=== PATIENT | male | born 1995 | race Hispanic/Latino ===

== ENCOUNTER 2024-09-25 10:07 | Emergency (ER) | payer BC ==
[~2024-09-25] VITALS: Ht 190.5 cm; Wt 104.3 kg
[2024-09-25] MEDS: ondanSETRON 4MG INJ IVP STA (11:03)
[2024-09-25] MEDS: 0.9%NACL 1000ML 1,000 ML IV STA (11:03)
[2024-09-25] MEDS: FAMOTIDINE 20MG VIAL IV STA (11:03)
[2024-09-25] MEDS: ketOROlac 15MG/ML VIAL (15MG/ML) IV STA (11:04)
[2024-09-25 11:07] LABS: APPEARANCE,URINE CLEAR (CLEAR); BILIRUBIN,URINE NEGATIVE (NEGATIVE); COLOR,URINE LIGHT-YELLOW (YELLOW); GLUCOSE, URINE (UA) NEGATIVE (NEGATIVE); KETONES,URINE NEGATIVE (NEGATIVE); LEUKOCYTE ESTERASE ,URINE NEGATIVE Leu/uL (NEGATIVE); NITRATE,URINE NEGATIVE (NEGATIVE); PH,URINE 5.5 (5.0-8.0); PROTEIN,URINE NEGATIVE (NEGATIVE); UROBILINOGEN,URINE 0.2 mg/dL (0.2-1.0)
[2024-09-25 11:08] LABS: ADD UA MICROSCOPIC YES
[2024-09-25 11:09] LABS: MUCUS,URINE RARE LPF (None Seen); RBC,URINE 0-1 /HPF (0-1); WBC,URINE 0-1 /HPF (0-1)
[2024-09-25 11:15] LABS: BASOPHILS # (AUTO) 0.02 K/uL (0.00-0.20); BASOPHILS % (AUTO) 0.3 % (0.0-5.0); EOSINOPHILS # (AUTO) 0.03 K/uL (0.00-0.70); EOSINOPHILS % (AUTO) 0.5 % (0.0-8.0); HEMATOCRIT 45.5 % (42-54); IMMATURE GRANULOCYTE ABSOLUTE 0.03 K/uL (0-1); LYMPHOCYTES # (AUTO) 1.6 K/uL (1.0-4.8); LYMPHOCYTES % (AUTO) 26.6 % (21.0-51.0); MEAN CORPUSCULAR HEMOGLOBIN 29.9 pg (27.0-33.0); MEAN CORPUSCULAR HGB CONC 34.7 g/dL (32.0-36.0); MEAN CORPUSCULAR VOLUME 86.2 fL (79-99); MONOCYTES # (AUTO) 0.6 K/uL (0.1-1.0); MONOCYTES % (AUTO) 10.1 % (3.0-13.0); NEUTROPHILS # (AUTO) 3.7 K/uL (1.8-7.7); PLATELET COUNT (AUTO) 234 K/uL (130-400); RED BLOOD CELL COUNT(AUTO) 5.28 MIL/uL (4.50-6.20); RED CELL DISTRIBUTION WIDTH 12.2 % (11.0-15.5); WHITE BLOOD COUNT (AUTO) 5.9 K/uL (4.8-10.8)
[2024-09-25 11:26] LABS: CREATININE 0.7 mg/dL (0.5-1.3); POTASSIUM 3.8 mmol/L (3.5-5.1)
[2024-09-25 11:31] LABS: ALBUMIN 4.1 g/dL (3.5-5.0); BILIRUBIN,DIRECT 0.1 mg/dL (0.0-0.3); BILIRUBIN,TOTAL 0.5 mg/dL (0.2-1.0); TOTAL PROTEIN, SERUM 7.9 g/dL (6.0-8.3)
[2024-09-25] MEDS ORDERED: FAMO-136 PO (12:02)
[2024-09-25] MEDS ORDERED: ONDA-243 PO (12:02)
--- NOTE | 2024-09-25 12:03 | ERN ---
ED Note History of Present Illness Stated Complaint: EPIGASTRIC PAIN, N/V/D Chief Complaint: Abdominal Pain Time Seen by MD: 10:17 Time Seen by Midlevel: 10:20 Dictation: 29-year-old male with no past medical history coming in with complaints of epigastric pain, nausea and vomiting for one week. Patient states this depends on type of food he eats for example when he tried eating greasy foods he said he threw it up. Denies having any fever, chest pain chest discomfort. Allergies: Coded Allergies: No Known Allergies (Unverified Allergy, Unknown, 09/25/24) Past Medical History Past Medical History: No Pertinent History Surgical History: None Review of System Dictation Constitutional: Negative for fever,chills, and weight loss Eyes: Negative for injury, pain,redness, and discharge ENT: Negative for injury,pain or swelling Cardiovascular: Negative for chest pain, palpitations, and edema Respiratory: Negative for shortness of breath, cough, and wheezing, Abdomen/GI: Abdominal pain, nausea and vomiting Back: Negative for injury and pain : Negative for injury, bleeding and discharge MS/Extremity: Negative for injury and deformity Skin: Negative for rash, and discoloration Neuro: Negative for headache, weakness, numbness, tingling, and seizure Psych: Negative for suicide ideation, homicidal ideation, and hallucinations Review of Systems: was completed Initial Vital Sign VS Vital Signs Date Time Temp Pulse Resp B/P (MAP) Pulse Ox O2 Delivery O2 Flow Rate FiO2 09/25/24 10:08 98.2 82 16 137/87 97 Room Air 0 Physical Exam Dictation General: awake, alert, NAD Head/Face: Normocephalic, atraumatic Eyes: PERRL, EOMI, vision at baseline ENT: oral cavity clear, TMs clear, no signs of infection Neck: Trachea midline, supple, no nuchal rigidity Cardiovascular: RRR, normal S1/S2, No MRGs, no JVD Respiratory: CTAB, no respiratory distress, No rales or wheezes Abdomen: Soft, mild tenderness on palpation to the epigastric region, non-dis tended, normal bowel sounds, no guarding or rebound. Skin: Warm, dry, normal turgor, no rash MS/Extremity: Pulses equal, no cyanosis, neurovascular intact, FROM Neuro: COAx4, GCS 15, strength 5/5, CN 2-12 intact, normal cerebellar exam, normal gait, Psych: Normal behavior, mood, and affect normal Results (Laboratory/Radiology) Laboratory/Radiology Laboratory Tests Test 09/25/24 10:21 09/25/24 11:07 Urine Color LIGHT-YELLOW (YELLOW) Urine Appearance CLEAR (CLEAR) Urine pH 5.5 (5.0-8.0) Urine Specific [place] 1.012 (1.001-1.031) Urine Protein NEGATIVE mg/dL (NEGATIVE) Urine Glucose (UA) NEGATIVE mg/dL (NEGATIVE) Urine Ketones NEGATIVE mg/dL (NEGATIVE) Urine Occult Blood +- (TRACE) (NEGATIVE) H Urine Nitrate NEGATIVE (NEGATIVE) Urine Bilirubin NEGATIVE mg/dL (NEGATIVE) Urine Urobilinogen 0.2 mg/dL (0.2-1.0) Urine Leukocyte Esterase NEGATIVE Dariel/uL Urine RBC 0-1 /HPF (0-1) Urine WBC 0-1 /HPF (0-1) Urine Bacteria None /HPF (None Seen) White Blood Count 5.9 K/uL (4.8-10.8) Red Blood Count 5.28 MIL/uL (4.50-6.20) Hemoglobin 15.8 g/dL (14.0-18.0) Hematocrit 45.5 % (42-54) Mean Corpuscular Volume 86.2 fL (79-99) Mean Corpuscular Hemoglobin 29.9 pg (27.0-33.0) Mean Corpuscular Hemoglobin Concent 34.7 g/dL (32.0-36.0) Red Cell Distribution Width 12.2 % (11.0-15.5) Platelet Count 234 K/uL (130-400) Mean Platelet Volume 8.8 fL (7.5-10.5) Immature Granulocyte % (Auto) 0.5 % (0-1) Neutrophils (%) (Auto) 62.0 % (40.0-77.0) Lymphocytes (%) (Auto) 26.6 % (21.0-51.0) Monocytes (%) (Auto) 10.1 % (3.0-13.0) Eosinophils (%) (Auto) 0.5 % (0.0-8.0) Basophils (%) (Auto) 0.3 % (0.0-5.0) Neutrophils # (Auto) 3.7 K/uL (1.8-7.7) Lymphocytes # (Auto) 1.6 K/uL (1.0-4.8) Monocytes # (Auto) 0.6 K/uL (0.1-1.0) Eosinophils # (Auto) 0.03 K/uL (0.00-0.70) Basophils # (Auto) 0.02 K/uL (0.00-0.20) Absolute Immature Granulocyte (auto 0.03 K/uL (0-1) Nucleated Red Blood Cells 0.0 % (0.0-0.19) Sodium Level 139 mmol/L (136-145) Potassium Level 3.8 mmol/L (3.5-5.1) Chloride Level 104 mmol/L (101-111) Carbon Dioxide Level 28 mmol/L (21-32) Blood Urea Nitrogen 7 mg/dL (7-18) Creatinine 0.7 mg/dL (0.5-1.3) Glomerular Filtration Rate Calc 127 mL/min (>90) Random Glucose 97 mg/dL (70-105) Total Calcium 8.9 mg/dL (8.5-10.1) Total Bilirubin 0.5 mg/dL (0.2-1.0) Direct Bilirubin 0.1 mg/dL (0.0-0.3) Aspartate Amino Transf (AST/SGOT) 19 U/L (10-37) Alanine Aminotransferase (ALT/SGPT) 27 U/L (12-78) Alkaline Phosphatase 86 U/L (50-136) Total Protein 7.9 g/dL (6.0-8.3) Albumin 4.1 g/dL (3.5-5.0) Lipase 33 U/L (16-77) Labs Reviewed?: Yes ED Course ED Course Orders Procedure Category Date Status Time Cbc With Differential LAB 09/25/24 Complete 10:35 Basic Metabolic Panel LAB 09/25/24 Complete 10:35 Hepatic Function Panel LAB 09/25/24 Complete 10:35 Lipase LAB 09/25/24 Complete 10:35 Us Abdominal Ruq\Ltd US 09/25/24 Taken 10:35 0.9%Nacl 1000ml (Ns PHA 09/25/24 In Process 1000ml) 10:35 Ondansetron 4mg Inj PHA 09/25/24 Complete (Zofran 4mg Inj) 10:35 Famotidine 20mg Vial PHA 09/25/24 Complete (Pepcid 20mg Vial) 10:35 Ketorolac PHA 09/25/24 Complete Tromethamine 15mg/Ml 10:35 Urinalysis Profile LAB 09/25/24 Complete 10:39 Current Medications Medications (Trade) Dose Ordered Sig/Wendy Route PRN Reason Start Time Stop Time Status Last Admin Dose Admin Famotidine (Pepcid 20mg Vial) 20 mg ONCE STAT IV 09/25/24 10:35 09/25/24 10:40 DC 09/25/24 11:03 Ketorolac Tromethamine (toRADol) 15 mg ONCE STAT IV 09/25/24 10:35 09/25/24 10:42 DC 09/25/24 11:04 Ondansetron HCl (zoFRAN 4MG INJ) 4 mg ONCE STAT IVP 09/25/24 10:35 09/25/24 10:40 DC 09/25/24 11:03 Sodium Chloride 1,000 ml @ 100 mls/hr Q10H STAT IV 09/25/24 10:35 09/25/24 20:34 09/25/24 11:03 Vital Signs Date Time Temp Pulse Resp B/P (MAP) Pulse Ox O2 Delivery O2 Flow Rate FiO2 09/25/24 10:08 98.2 82 16 137/87 97 Room Air 0 Medical Decision Making MDM MDM: 29-year-old male with no past medical history coming in with complaints of epigastric pain, nausea and vomiting for one week. Patient states this depends on type of food he eats for example when he tried eating greasy foods he said he threw it up. Denies having any fever, chest pain chest discomfort. Lab work unremarkable. Ultrasound shows no gallbladder stones. Normal CBD wall in gallbladder wall. Discussed findings with the patient. Educated patient he needs to follow up with PCP and GI. Educated this could be gastritis or PUD. Either or patient needs to follow up outpatient and return if symptoms worsen. Patient verbalized understanding, answered all questions. Differential diagnosis: Pancreatitis, cholecystitis, cholelithiasis, gastritis, PUD Rationale: Tests considered and ordered secondary to shared decision making include: Previous outside records reviewed: Old ER visits. Risk of complication and/or morbidity or mortality of patient management: None Medications-Per medication reconciliation Need for hospitalization: Patient does not meet criteria for hospitalization. Need for emergency major/minor surgery: No There are no social concerns with this patient. Prescription drug management Prescriptions will include symptomatic care Patient's prior external medical records from other ER visits were reviewed by me as indicated. Prior testing and results from previous visits were reviewed. Prior tests were taken into account with medical decision making and resource utilization, independent historian/historians were used to obtain complete medical history. I independently interpreted the test that were performed, results were reviewed by me and considered findings on radiology if ordered. Medical management and examination interpretation discussions were had by me with other qualified healthcare professionals as indicated for the patient's care. DX & DISP Disposition: Discharge Departure Impression: Primary Impression: Epigastric abdominal pain Condition: Stable Scripts Ondansetron (Ondansetron Odt) 4 Mg Tab.rapdis 4 MG PO Q6HPRN PRN for nausea for 3 Days, #12 TAB 0 Refills Prov: CARLI AGUIRRE SYSTEM SUPPORT SPECIALIST 09/25/24 Famotidine (Pepcid) 20 Mg Tablet 1 TAB PO BID for 15 Days, #30 TAB 0 Refills Prov: CARLI AGUIRRE SYSTEM SUPPORT SPECIALIST 09/25/24 Additional Instructions: You need to follow up with your PCP and or with a water/wastewater project engineer. Avoid eating any spicy or greasy foods. Return to the hospital if you start to develop severe abdominal pain, fever, nausea or vomiting despite taking your antiemetic medication. Referrals: SELF,REFERRAL (PCP) JAZMIN KNIGHT MD Time of Disposition: 12:02 I have reviewed the case, and I agree with, Diagnosis and Plan CARLI AGUIRRE NP Sep 25, 2024 12:03
[2024-09-25 12:15] VITALS: BP 131/85; PULSE 80; RESP 16; TEMP 98.2; O2SAT 97
--- NOTE | 2024-09-25 13:41 | HMCIMG ---
US ABDOMINAL RUQ\E\LTD HISTORY: Pain COMPARISON: None TECHNIQUE: Right upper quadrant abdominal ultrasound study was performed. FINDINGS: The study is limited due to overlying bowel gas. Liver measures 15.4 cm. The visualized portion of the pancreas is within normal limits. Liver is echogenic consistent with liver parenchymal disease. No gallstone is seen. Common duct measures 4 mm. No evidence of gallbladder wall thickening is seen. Right kidney measures 10.5 x 6.3 x 5.7 cm. No hydronephrosis is seen of the right kidney. IMPRESSION: 1. No gallstones or ductal dilatation is seen. 2. No hydronephrosis is seen.
== END 2024-09-25 12:44 | disposition home or self-care (01) ==
LOC: EDH 10:07
DX: R10.13 Epigastric pain (principal)
CPT/HCPCS: 99284; 96374; 76705; 96375; 96361; 80076; 80048; 83690; 85025; 81001; 36415; J1885; J3490; J7030; J2405